=== PATIENT | male | born 1960 | race African-American/Black ===

== ENCOUNTER → 2017-01-30 | Outpatient (CLI) | payer BC ==
[2015-06-20 11:10] VITALS: BP 124/65
--- NOTE | 2017-01-31 12:24 | MRI ---
HISTORY: Shoulder pain. NONCONTRAST MRI EXAM OF THE LEFT SHOULDER Technique: Multiplanar and multisequence MR examination of the left shoulder is performed at 1.5 Maya la without the use of IV contrast. Findings: ? Rotator cuff: The subscapularis is intact. No medial displacement of the biceps tendon is seen. Th ere is tendinosis of the posterior supraspinatus, distally, at the footplate. Also seen is tendinosi s of the anterior infraspinatus at the footplate without full-thickness rotator cuff tear seen. No f ocal rotator cuff tear or rotator cuff atrophy is seen. The teres minor is intact. Increased T2 sign al change and linear fluid is seen in the subacromial \T\ subdeltoid bursa, compatible with mild sub acromial \T\ subdeltoid bursitis. ? Intra-articular biceps: No injury, tear, or displacement observed. ? Glenoid labrum: No displaced labral tear or para-labral cyst formation is seen. ? Acromioclavicular joint: There is no evidence for AC joint separation or associated AC joint injur y, however. 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 ? Glenohumeral joint: No joint effusion, focal joint erosion, or loose body seen. ? Bone marrow: No altered T2 signal seen to suggest an acute fracture, bone marrow contusion, or agg ressive bone marrow lesion. No Hill-Sachs deformity or bony Bankart lesion is seen, either. No other bone marrow signal abnormality is observed. ? Other: No concerning or infiltrative soft tissues masses are seen. IMPRESSION: 1. Moderate tendinosis of the rotator cuff conjoined tendon, distally. 2. No full-thickness rotator cuff tear or rotator cuff atrophy is seen. 3. 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 4. Biceps tendinosis with some fluid surrounding the biceps tendon. Reported By:
== END | disposition home or self-care (01) | DRG 556 ==
LOC: RAD 10:33
PROVIDERS: ATTEND Internal Medicine
DX: M25.512 Pain in left shoulder (principal); M19.012 Primary osteoarthritis, left shoulder
CPT/HCPCS: 73221